=== PATIENT | female | born 2000 | race Caucasian/White ===

== ENCOUNTER 2019-10-14 12:07 | Emergency (ER) | payer OTHER, SELFPAY ==
[2019-10-14 12:17] VITALS: BP 110/68; PULSE 69; RESP 16; TEMP 36.8; O2SAT 100
--- NOTE | 2019-10-14 12:43 | ED.SKABFB ---
HPI - Skin/Abscess/Foreign Bdy General Chief complaint: Skin/Abscess/Foreign Body Stated complaint: Rash on leg Time Seen by Provider: 10/14/19 12:39 Source: patient and RN notes reviewed Mode of arrival: ambulatory Limitations: no limitations History of Present Illness HPI narrative: Patient presents today complaining of redness and pain to her right knee. Reports the area started out as a small insect bite yesterday, but has significantly worsened since this morning. Denies itching. No history of MRSA, staph infection, abscess, or boils. Pain is only with pressure on the area. She applied some Prid salve last night. Denies recent fever. She did take antibiotics a few weeks ago for an ear infection. MD complaint: rash Related Data Home Medications Medication Instructions Recorded Confirmed bupropion HCl 150 mg PO DAILY 10/14/19 10/14/19 sertraline 100 mg PO DAILY 10/14/19 10/14/19 Allergies Allergy/AdvReac Type Severity Reaction Status Date / Time No Known Allergies Allergy Verified 10/14/19 12:41 Review of Systems Review of Systems: Narrative: CONSTITUTIONAL: Denies body aches, fever, chills, or sweats. EYES: Denies visual changes, redness, or discharge. ENT: Denies rhinorrhea, congestion, sore throat, or otalgia. CARDIOVASCULAR: Denies chest pain, palpitations, or edema. RESPIRATORY: Denies cough or dyspnea. GASTROINTESTINAL: Denies abdominal pain, nausea, vomiting, or diarrhea. GENITOURINARY: Denies dysuria or hematuria. SKIN: Redness and pain to the right knee MUSCULOSKELETAL: Denies back pain, joint pain, or myalgia. NEUROLOGIC: Denies headache, numbness, tingling, or weakness. PSYCH: Denies depression or anxiety. [facility] Past Medical History Medical History (Updated 10/14/19 @ 12:46 by Maureen Ramos, TALENT AC[employer]ISITION PROGRAM MANAGER, ) Depression Comments At time of signature, I have reviewed and agree with nursing past medical, surgical, social and family history unless otherwise noted. Please see nursing chart for further information. There is no relevant family history pertinent to the presenting complaint Exam Narrative: Exam Narrative: GENERAL: Well-appearing, well-nourished, and in no acute distress. HEAD: Normocephalic, atraumatic. EYES: EOMI. No redness or drainage. Conjunctivae normal. ENT: Mucous membranes pink and moist. NECK: Normal AROM. CHEST: No respiratory distress. EXTREMITIES: Normal range of motion. No edema. SKIN: Warm, dry. 10 x 8 cm area of erythema and warmth overlying the right patellar area with pinpoint pustule in the center. No fluctuance noted. Mild induration noted. Full AROM of the knee. Distal sensation intact. Capillary refill normal. NEURO: No focal deficits. Alert and oriented x3. Gait steady. PSYCH: Normal affect. No signs of depression or anxiety. Course Vital Signs Vital signs: Vital Signs Temperature 98.3 F 10/14/19 12:17 Pulse Rate 69 10/14/19 12:17 Respiratory Rate 16 10/14/19 12:17 Blood Pressure 110/68 10/14/19 12:17 Pulse Oximetry 100 10/14/19 12:17 Temperature 98.3 F 10/14/19 12:17 Pulse Rate 69 10/14/19 12:17 Respiratory Rate 16 10/14/19 12:17 Blood Pressure 110/68 10/14/19 12:17 Pulse Oximetry 100 10/14/19 12:17 Reviewed MDM - Skin/Abscess/Foreign Bdy Differential Diagnosis Differential diagnosis: Likely abscess of skin or subcutaneous tissue, cellulitis, impetigo and contact dermatitis Critical Care Time Critical Care Time Critical Care Time: No Discharge Plan Discharge Clinical Impression: Cellulitis Qualifiers: Site of cellulitis: extremity Site of cellulitis of extremity: lower extremity Laterality: right Qualified Code(s): L03.115 - Cellulitis of right lower limb Patient Disposition: Home, Self-Care Condition: Stable Instructions: Antibiotic Form, Cellulitis (DC) Additional Instructions: Take the Bactrim as prescribed until gone. Take Tylenol or ibuprofen at home for pain. If you note a
== END 2019-10-14 12:49 | disposition home or self-care (01) ==
PROVIDERS: Emergency Provider Nurse Practitioner
DX: L03.115 Cellulitis of right lower limb (principal); F32.9 Major depressive disorder, single episode, unspecified
CPT/HCPCS: 99213; G0463

== ENCOUNTER 2020-05-28 14:22 | Emergency (ER) | payer OTHER, SELFPAY ==
[2020-05-28 14:52] VITALS: BP 122/70; PULSE 99; RESP 20; TEMP 36.6; O2SAT 100
--- NOTE | 2020-05-28 17:06 | PC.NURSE ---
1st call, no answer
--- NOTE | 2020-05-28 17:37 | PC.NURSE ---
2nd call, pt not present.
== END 2020-05-28 17:37 | disposition left against medical advice (07) ==
DX: Z53.21 Procedure and treatment not carried out due to patient leaving prior to being seen by health care provider (principal)
CPT/HCPCS: 99199

== ENCOUNTER 2024-02-19 13:59 | Emergency (ER) | payer OTHER, SELFPAY ==
--- NOTE | 2024-02-19 14:07 | ED.FEMALEGU ---
HPI - Female Genitourinary General Chief complaint: Urogenital-Female Stated complaint: STD check Time Seen by Provider: 02/19/24 14:07 Source: patient Mode of arrival: ambulatory Limitations: no limitations History of Present Illness HPI Narrative: Aure is a 23-year-old female patient presenting to the clinic today for an STI check. She reports that she has possible exposure to gonorrhea from a baby daddy . Is in a new relationship with a new male partner-he is also being seen today for possible STI he is not the baby daddy . Patient reports that her baby daddy called her and told her that he had gonorrhea. Patient has had recent sexual intercourse with this baby daddy . Patient states after having intercourse with the baby daddy that she has not felt right and has been having some vaginal discharge and is feeling off. She had some vaginal yellow discharge x1 week and with some odor that started over the last few days. Related Data Home Medications Medication Instructions Recorded Confirmed No Home Medications 05/28/20 02/19/24 Allergies Allergy/AdvReac Type Severity Reaction Status Date / Time No Known Allergies Allergy Verified 02/19/24 14:09 Review of Systems Review of Systems: Pertinent positives per HPI. Patient denies any fever, chills, rash, headache, visual changes, dizziness, cough, runny nose, sore throat, shortness of breath, chest pain, palpitations, nausea, vomiting, diarrhea, constipation, abdominal pain. PMFSH Past Medical History Medical History Depression Social History Social History Gender identity (if verbalized by the patient): Female Sexual Orientation (if Verbalized by the Patient): Straight or Heterosexual Comments At the time of my signature, I reviewed and agree with the nursing past medical, surgical, social, and family history. There is no relevant family history pertinent to the patient complaint. Exam Narrative: General: Well-developed, well nourished, in no apparent distress. Head: Normocephalic, atraumatic. Cardio: Regular rate and rhythm, s1 and s2 normal, no murmur appreciated. Resp: Clear to auscultation bilaterally, no rhonchi, rales, wheezing or rubs. Abdomen: Soft, pliable, bowel sounds present in all quadrants, non-tender to palpation, no organomegly, no CVAT tenderness. : Deferred-patient declined pelvic exam. Course Course Emergency Course: Portions of this record may have been created with voice recognition software. Level of Care: Express Care Visit Vital Signs Vital signs: Vital signs reviewed MDM - Female Genitourinary MDM Narrative Medical decision making narrative: At the time of visit patient is resting comfortably on the exam table. Patient appears to be nontoxic. Labs: UA negative for any sign of infection, blood, or protein, bedside test was negative. Chlamydia, gonorrhea, Trichomonas testing was sent to the lab Plan: Patient has had exposure to gonorrhea from baby daddy and is having yellow discharge with foul odor. She declined pelvic exam today. Will give injection of Rocephin 500 mg IM in the clinic today and have urine testing sent for gonorrhea, chlamydia, and Trichomonas. Will contact patient if chlamydia and Trichomonas testing is positive and put her on appropriate antibiotics at that time. Supportive measures were discussed with the patient and they voiced understanding discharge instructions and agrees to treatment plan. Return precautions reviewed Differential Diagnosis Differential diagnosis: Likely urinary tract infection, bacterial vaginosis, trichomoniasis, cervicitis, vaginitis, cystitis and dysmenorrhea Discharge Plan Discharge Clinical Impression: Exposure to gonorrhea, Encounter for assessment of STD exposure High risk sexual behavior Qualifiers: High risk se
[2024-02-19 14:14] VITALS: BP 123/82; PULSE 109; RESP 16; TEMP 36.2; O2SAT 98
[2024-02-19] MEDS: cefTRIAXone 500 MG, LIDOCAINE HCL 1% LOCAL INJ 1 ML IM (14:43)
[2024-02-19 20:10] LABS: Trichomonas Vag PCR NOT DETECTED (NOT DETECTE)
[2024-02-19 20:33] LABS: Chlamydia trachomatis NOT DETECTED (NOT DETECTE); Neisseria gonorrhoeae PCR NOT DETECTED (NOT DETECTE)
== END 2024-02-19 15:01 | disposition home or self-care (01) ==
PROVIDERS: Emergency Provider Nurse Practitioner Family
DX: Z20.2 Contact with and (suspected) exposure to infections with a predominantly sexual mode of transmission (principal); Z72.51 High risk heterosexual behavior
CPT/HCPCS: 81003; 81025; 87491; 87591; 87661; 96372; 99214; G0463; J0696

== ENCOUNTER 2024-10-07 19:07 | Emergency (ER) | payer OTHER, SELFPAY ==
--- NOTE | ~2024-10-07 | XR_ITS ---
EXAMINATION: XR foot LT min 3V DATE: 10/07/2024 19:29 INDICATION: Left fifth metatarsal pain. TECHNIQUE: 4 views of left foot were obtained. COMPARISON: None. FINDINGS: Alignment is normal. There is a nondisplaced oblique extra articular fracture of base of fi fth metatarsal. There is mild osteoarthritis of first metatarsophalangeal joint. IMPRESSION: 1. Nondisplaced oblique extra articular fracture of base of fifth metatarsal. Reviewed, dictated and finalized at location A. ER ASSISTANT
--- NOTE | 2024-10-07 19:10 | ED_ITS ---
HPI - Extremity Injury (Lower) General Chief Complaint: Extremity Injury, Lower Stated Complaint: Left Foot Pain Time Seen by Provider: 10/07/24 19:15 Source: patient Mode of arrival: ambulatory Limitations: no limitations History of Present Illness HPI Narrative: Aure is a 23-year-old female patient presenting to the clinic today with complaints of left lateral foot pain. She reports she rolled her foot yesterday while at the bar when she was goofing around. ETOH was on board at the time. Is having pain to the lateral left 5th metatarsal. Mild swelling to the dorsal foot with bruising noted to the plantar aspect of the midfoot Related Data Home Medications ?Medication ?Instructions ?Recorded ?Confirmed ?Last Taken ?Type No Home Medications 05/28/20 10/07/24 Unknown History Allergies Allergy/AdvReac Type Severity Reaction Status Date / Time No Known Allergies Allergy Verified 10/07/24 19:08 Review of Systems Review of Systems: Pertinent positives per HPI. Patient denies any fever, chills, rash, headache, v isual changes, dizziness, cough, shortness of breath, chest pain, palpitations, nausea, vomiting, diarrhea, constipation, abdominal pain, or any urinary issues. [facility] Past Medical History Medical History Depression Social History Social History Gender identity (if verbalized by the patient): Female Sexual Orientation (if Verbalized by the Patient): Straight or Heterosexual Comments At the time of my signature, I reviewed and agree with the nursing past medical, surgical, social, and family history. There is no relevant family history pertinent to the patient complaint. Exam Narrative: General: Well-developed, well nourished, in no apparent distress Head: Normocephalic, atraumatic. Cardio: Regular rate and rhythm, s1 and s2 normal, no murmur appreciated. Resp: Clear to auscultation bilaterally, no rhonchi, rales, wheezing or rubs. Musculoskeletal: No deformity, mild swelling to the dorsal foot with a approximately 2 cm bruise to the plantar midfoot, tender to palpation over the lateral 5th metatarsal, limited range of motion of the foot due to pain, muscle strength strong and equal, peripheral pulse strong, no edema, no cyanosis, normal gait and station Course Course Emergency Course: Portions of this record may have been created with voice recognition software. Level of Care: Express Care Visit Vital Signs Vital signs: Vital Signs Temperature 36.3 C L 10/07/24 19:14 Pulse Rate 112 H 10/07/24 19:14 Respiratory Rate 16 10/07/24 19:14 Blood Pressure 126/77 10/07/24 19:14 Pulse Oximetry 100 10/07/24 19:14 Oxygen Delivery Room Air 10/07/24 19:14 Temperature 36.3 C L 10/07/24 19:14 Pulse Rate 112 H 10/07/24 19:14 Respiratory Rate 16 10/07/24 19:14 Blood Pressure 126/77 10/07/24 19:14 Pulse Oximetry 100 10/07/24 19:14 Oxygen Delivery Room Air 10/07/24 19:14 Vital signs reviewed MDM - Extremity Injury (Lower) MDM Narrative Medical decision making narrative: At the time of visit patient is resting comfortably on the exam table. Patient appears to be nontoxic. Diagnostics: X-ray of the left foot was performed and shows a nondisplaced closed fracture of the left proximal 5th metatarsal Plan: Patient has left 5th metatarsal fracture. Postop shoe, crutches, an Elmer wrap was applied. Will have patient follow-up with Dr. Quintana. Supportive measures were discussed with the patient and they voiced understanding discharge instructions and agrees to treatment plan. Return precautions reviewed Differential Diagnosis Differential diagnosis: Likely ankle sprain and strain, fracture of toe and other (Foot fracture, foot sprain) Imaging Data Radiologist's impression: ITS Impressions Foot X-Ray 10/07/24 19:30 IMPRESSION: 1. Nondisplaced oblique extra articular fracture of base of fifth metatarsal. Discharge Plan Discharge Clinical Impression: Metatarsal fracture Qualifiers: Encounter type: initial encounter Metatarsal bone: fifth Fracture type: closed Fracture alignment: nondisplaced Laterality: left Qualified Code(s): S92.355A - Nondisplaced fracture of fifth metatarsal bone, left foot, initial encounter for closed fracture Patient Disposition: Home, Self-Care Condition: Stable Instructions: Antibiotic Form, Foot Fracture in Adults (ED) Additional Instructions: Rest, ice, elevate, and wear postop shoe as directed May use crutches as needed Tylenol/motrin for pain as discussed. Gradually bear weight No running or sports until healed. Follow-up with Dr. Quintana-orthopedic provider-call tomorrow to schedule appointment Patient Language: Yoruba Prescriptions: No Action No Home Medications Follow-up/Referrals: Justen Quintana MD [Physician] - (Left 5th close proximal metatarsal fracture) PHYSICIAN,UX ARCHITECT [Primary Care Provider] - Time of Disposition: 19:29 Quality NIHSS Nursing Documentation ED NIHSS nursing documentation: reviewed/agree
[2024-10-07 19:14] VITALS: BP 126/77; PULSE 112; RESP 16; TEMP 36.3; O2SAT 100
[2024-10-07] MEDS: IBUPROFEN 400 MG TABLET 800 MG PO (19:49)
== END 2024-10-07 19:59 | disposition home or self-care (01) ==
PROVIDERS: Emergency Provider Nurse Practitioner Family
DX: S92.355A Nondisplaced fracture of fifth metatarsal bone, left foot, initial encounter for closed fracture (principal); X50.9XXA Other and unspecified overexertion or strenuous movements or postures, initial encounter
CPT/HCPCS: 73630; 99214; A9270; G0463